=== PATIENT | female | born 1990 | race Two or more races ===

== ENCOUNTER 2019-09-18 18:39 | Emergency (ER) | payer OTHER ==
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
[2019-09-18 19:24] VITALS: BP 123/88; PULSE 66; TEMP 98.5; BMI 39.4
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
[2019-09-18] MEDS ORDERED: ACETAMINOPHEN 500 MG TABLET (FP) PO ONE (19:45)
[2019-09-18] MEDS ORDERED: ACETAMINOPHEN 325 MG TABLET (FP) ONE (19:47)
== END 2019-09-19 03:53 | disposition home or self-care (01) ==
LOC: JER 18:39
DX: O99.89 Other specified diseases and conditions complicating pregnancy, childbirth and the puerperium (principal); S00.03XA Contusion of scalp, initial encounter; M54.5 Low back pain; M54.2 Cervicalgia; T14.8XXA Other injury of unspecified body region, initial encounter; Y04.2XXA Assault by strike against or bumped into by another person, initial encounter; Y93.89 Activity, other specified; Y92.512 Supermarket, store or market as the place of occurrence of the external cause; Y99.8 Other external cause status; Y07.9 Unspecified perpetrator of maltreatment and neglect; Z3A.13 13 weeks gestation of pregnancy; F31.9 Bipolar disorder, unspecified; F43.10 Post-traumatic stress disorder, unspecified; G40.909 Epilepsy, unspecified, not intractable, without status epilepticus; Z91.013 Allergy to seafood; Z91.040 Latex allergy status; Z91.048 Other nonmedicinal substance allergy status; Z88.5 Allergy status to narcotic agent
CPT/HCPCS: 70450-TC; 72040-TC; 72125-TC; 99281-25

== ENCOUNTER 2019-11-03 14:33 | Inpatient (IN) | payer OTHER ==
[2019-11-03] MEDS ORDERED: SODIUM CHLORIDE 0.9% 500 ML INFUS.BAG IV ONE (14:58)
[2019-11-03 15:01] VITALS: TEMP 98.1; BMI 38.6
--- NOTE | 2019-11-03 15:28 | PDOC ---
Attending Attestation - Resident Resident Name: Cooper Meehan - ED Attending Attestation I have performed the following: I have examined & evaluated the patient, The case was reviewed & discussed with the resident, I agree w/resident's findings & plan, Exceptions are as noted - HPI HPI: 11/03/19 15:25 29y F hx ofseizures (self d/cd off meds), migraines presents with episode of witnessed seizure like activty - per boyfriend, pt was doing well this mornig, had a mild headache, sat down, put her hands on her head and had a seizure like episode. Pt may have had brief LOC. pt notes that she feels better but still has mild headache without associated nausea/vomiting, vision changes, fever/ chills, neck pain, cp, sob, palpitations, cough, leg edema. pt does note some foul smelling urine recently - exam GENERAL: The patient is awake, alert, and fully oriented, Nontoxic - in no acute distress. HEAD: Normocephalic, atraumatic. EYES: extraocular movements intact, sclera anicteric, conjunctiva clear. ENT: Normal voice, Moist mucous membranes. NECK: Normal range of motion, supple LUNGS: Breath sounds equal, clear to auscultation bilaterally. No wheezes, no rhonchi, no rales. HEART: Regular rate and rhythm, without murmur, rub or gallop. ABDOMEN: Soft, nontender, gravid abdomen, No guarding, no rebound.No CVA tenderness EXTREMITIES: Normal range of motion, no edema. No cyanosis. No erythema, or tenderness. NEUROLOGICAL: No facial assymetry, Normal speech, moving all 4 extremities spontaneously and symemtrically PSYCH: Normal mood, normal affect. SKIN: Warm, Dry, normal turgor, seizure vs pseodu pseixure. neuro consulted - recommends keppra load will ck labs to screen for metabolic derangement ua to screen for UTI neuro intact, will defer CT - Physicial Exam PE: 11/09/19 07:32 seee above - Medical Decision Making 11/03/19 18:41 labs reviewed UA noted for UTI will treat with abx will dc w fu with Neuro
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
[2019-11-03] MEDS ORDERED: levETIRAcetam 500 MG TABLET (FP) PO ONE ×2 (15:53→16:10)
[2019-11-03] MEDS ORDERED: ACETAMINOPHEN 325 MG TABLET (FP) PO ONE (16:03)
[2019-11-03] MEDS ORDERED: METOCLOPRAMIDE HCL INJECTION 10 MG/2 ML VIAL IVPUSH ONE (16:03)
[2019-11-03 16:08] LABS: BASO % 0.3 % (0-2.0); EOS % 6.5 % (0-4.5); HEMATOCRIT 33.5 % (32.4-45.2); LYMPH % 23.5 % (8-40); MCH 26.3 pg (25.7-33.7); MCHC 32.8 g/dl (32.0-36.0); MEAN CELL VOLUME 80.1 fl (80-96); MEAN PLT VOLUME 9.1 fl (7.5-11.1); MONO % 5.2 % (3.8-10.2); NEUT % 64.5 % (42.8-82.8); PLATELET COUNT 176 K/MM3 (134-434); RBC 4.18 M/mm3 (3.60-5.2); RDW 14.8 % (11.6-15.6); WHITE BLOOD COUNT 8.1 K/mm3 (4.0-10.0)
[2019-11-03] MEDS ORDERED: ACETAMINOPHEN 325 MG TABLET (FP) ONE (16:10)
[2019-11-03 16:31] LABS: EPI CELLS 1.7 /HPF (0-5/HPF); HYALINE CASTS 1 /lpf (0-8); INR 0.96 (0.83-1.09); PH,URINE 6.5 (5.0-8.0); PROTHROMBIN TIME (PATIENT) 11.3 SEC (9.7-13.0); URINE APPEARANCE CLEAR; URINE BACTERIA 8749.9 /hpf (NEGATIVE); URINE BILIRUBIN NEGATIVE (NEGATIVE); URINE COLOR YELLOW; URINE GLUCOSE (UA) NEGATIVE (NEGATIVE); URINE KETONE NEGATIVE (NEGATIVE); URINE LEUK ESTERASE NEGATIVE (NEGATIVE); URINE NITRITE POSITIVE (NEGATIVE); URINE PROTEIN NEGATIVE (NEGATIVE); URINE RBC 0 /hpf (0-4); URINE UROBILINOGEN 0.2 mg/dL (0.2-1.0); URINE WBC 4 /hpf (0-5)
[2019-11-03 17:02] LABS: ALBUMIN 2.6 g/dl (3.4-5.0); ALK PHOS 55 U/L (45-117); ANION GAP 7 MMOL/L (8-16); BILIRUBIN,TOTAL 0.2 mg/dL (0.2-1); BLOOD UREA NITROGEN 10.7 mg/dL (7-18); CALCIUM 8.4 mg/dL (8.5-10.1); CHLORIDE 108 mmol/L (98-107); CO2 23 mmol/L (21-32); CREATININE 0.6 mg/dL (0.55-1.3); GLUCOSE,RANDOM 76 mg/dL (74-106); POTASSIUM 3.9 mmol/L (3.5-5.1); SGOT/AST 10 U/L (15-37); SGPT/ALT 20 U/L (13-61); SODIUM 138 mmol/L (136-145); TOT PROT 5.7 g/dl (6.4-8.2)
--- NOTE | 2019-11-03 18:28 | CON.NEURO ---
Consult - Past Medical History Pulmonary: Yes: Asthma (no meds, inhler induces panic attacks) ...LMP: 03/31/14 Psych: Yes: Anxiety, Panic Musculoskeletal: Yes: Chronic low back pain - Past Surgical History Past Surgical History: Yes: Cholecystectomy - Alcohol/Substance Use Hx Alcohol Use: No History of Substance Use: reports: None - Smoking History Smoking history: Never smoked Have you smoked in the past 12 months: No Aproximately how many cigarettes per day: 3 - Social History Usual Living Arrangement: With Spouse ADL: Independent Home Medications - Allergies Allergies/Adverse Reactions: Allergies Allergy/AdvReac Type Severity Reaction Status Date / Time haloperidol [From Haldol] Allergy Severe syncope Verified 02/04/15 13:36 haloperidol lactate Allergy Severe syncope Verified 02/04/15 13:36 [From Haldol] Latex, Natural Rubber Allergy Mild Rash Verified 02/04/15 13:36 shellfish derived Allergy Verified 02/04/15 13:36 amphetamine aspartate AdvReac Verified 02/04/15 13:36 [From Adderall] amphetamine sulfate AdvReac Verified 02/04/15 13:36 [From Adderall] aripiprazole [From Abilify] AdvReac Verified 02/04/15 13:36 dextroamphetamine saccharate AdvReac Verified 02/04/15 13:36 [From Adderall] dextroamphetamine sulfate AdvReac Verified 02/04/15 13:36 [From Adderall] morhpine Allergy Severe syncope Uncoded 02/04/15 13:36 baby powder AdvReac Uncoded 02/04/15 13:36 - Home Medications Home Medications: Ambulatory Orders Acetaminophen [Tylenol .Regular Strength -] 650 mg PO Q3H PRN #20 tablet Ibuprofen [Motrin -] 200 mg PO Q4H PRN #20 tablet 03/14/15 Vitamins (Sjr) - 1 tab PO DAILY #30 tablet 03/14/15 Physical Exam-Neuro Vital Signs: Vital Signs Temperature 98.1 F 11/03/19 14:35 Pulse Rate 69 11/03/19 14:35 Respiratory Rate 16 11/03/19 14:35 Blood Pressure 112/82 11/03/19 14:35 O2 Sat by Pulse Oximetry (%) 100 11/03/19 14:35 Labs: CBC, BMP 11/03/19 15:42 11/03/19 15:42 INR, PTT INR 0.96 (0.83-1.09) 11/03/19 15:42 Assessment/Plan cc Breakthrough seizure HPI 29 YEAR OLD FEMALE 17 week , pateint has history of headhace and epilepsy and pseudoseizure. She was prescribed antiseizure medicaiton but she was non compliant . 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 She also have history of PTSD,Vertigo, depression. It is not clear if she has epileptic seizure or pseudo seizure. Patient has history of tbi in past. Recently she has been using marijuana , which seems to be helpful. Patient's finance describes it as patient holding her head with both hands, eyes rolled back and she started generalized shaking and lasted one minute. There is no loc, there is no post ictal confusion, tongue bite. she recently has ct head done in september 2019 and it was normal. PMH as above Allergies/Adverse Reactions: Allergies Allergy/AdvReac Type Severity Reaction Status Date / Time haloperidol [From Haldol] Allergy Severe syncope Verified 02/04/15 13:36 haloperidol lactate Allergy Severe syncope Verified 02/04/15 13:36 [From Haldol] Latex, Natural Rubber Allergy Mild Rash Verified 02/04/15 13:36 shellfish derived Allergy Verified 02/04/15 13:36 amphetamine aspartate AdvReac Verified 02/04/15 13:36 [From Adderall] amphetamine sulfate AdvReac Verified 02/04/15 13:36 [From Adderall] aripiprazole [From Abilify] AdvReac Verified 02/04/15 13:36 dextroamphetamine saccharate AdvReac Verified 02/04/15 13:36 [From Adderall] dextroamphetamine sulfate AdvReac Verified 02/04/15 13:36 [From Adderall] morhpine Allergy Severe syncope Uncoded 02/04/15 13:36 baby powder AdvReac Uncoded 02/04/15 13:36 Home Medications: Acetaminophen [Tylenol .Regular Strength -] 650 mg PO Q3H PRN #20 tablet Ibuprofen [Motrin -] 200 mg PO Q4H PRN #20 tablet 03/14/15 Vitamins (Sjr) - 1 tab PO DAILY #30 tablet 03/14/15 ROS,FH,SH reviewed in chart NEUROLOGICAL EXAMINATION Alert oriented x 3, speech is noraml, neck is supple vss eomi, pupils reactive no face asymmetry moving all ext sensation is normal ct head is normal in september 2019 Assessment/Plan 29 year old female 19 week , was supposed to be on AED ( Keppra ) but non compliant with medicaiton , she has breakthrough seizure, not clear if true epileptic seizure Plan: check electroylytes, urinary drug screen - no need for imaging keppra can be resumed 750 mg po bid -abstain from drugs, follow up with neurologist and obgyn -seizure precautions were discussed with patient Thanking you so much Candido Jean-Baptiste MD
[2019-11-03 19:22] VITALS: PULSE 82
--- NOTE | 2019-11-03 20:01 | PDOC ---
*Physical Exam - Vital Signs Last Vital Signs Temp Pulse Resp BP Pulse Ox 98.1 F 82 18 118/78 98 11/03/19 14:35 11/03/19 15:30 11/03/19 15:30 11/03/19 15:30 11/03/19 15:30 - Physical Exam 11/03/19 20:21 GENERAL: Awake, alert, and fully oriented, in no acute distress HEAD: No signs of trauma, normocephalic, atraumatic EYES: PERRLA, EOMI, sclera anicteric, conjunctiva clear ENT: Auricles normal inspection, hearing grossly normal, nares patent, oropharynx clear without exudates. Moist mucosa NECK: Normal ROM, supple, no lymphadenopathy, JVD, or masses LUNGS: No distress, speaks full sentences, clear to auscultation bilaterally HEART: Regular rate and rhythm, normal S1 and S2, no murmurs, rubs or gallops, peripheral pulses normal and equal bilaterally. ABDOMEN: gravid, nontender, uterus palpable above pubic symphysis. Soft, nontender, normoactive bowel sounds. No guarding, no rebound. No masses EXTREMITIES : Normal inspection, Normal range of motion, no edema. No clubbing or cyanosis NEUROLOGICAL: Cranial nerves II through XII grossly intact. Normal speech, normal gait, no focal sensorimotor deficits SKIN: Warm, Dry, normal turgor, no rashes or lesions noted ED Treatment Course - LABORATORY CBC & Chemistry Diagram: 11/03/19 15:42 11/03/19 15:42 - ADDITIONAL ORDERS Additional order review: Laboratory Results 11/03/19 11/03/19 11/03/19 15:42 15:42 15:42 PT with INR 11.30 INR 0.96 Sodium Potassium Chloride Carbon Dioxide Anion Gap BUN Creatinine Est GFR (CKD-EPI)AfAm Est GFR (CKD-EPI)NonAf Random Glucose Lactic Acid 0.5 Calcium Total Bilirubin AST ALT Alkaline Phosphatase Creatine Kinase Troponin I Total Protein Albumin Urine Color Yellow Urine Appearance Clear Urine pH 6.5 Ur Specific [place] 1.011 Urine Protein Negative Urine Glucose (UA) Negative Urine Ketones Negative Urine Blood Negative Urine Nitrite Positive H Urine Bilirubin Negative Urine Urobilinogen 0.2 Ur Leukocyte Esterase Negative Urine WBC (Auto) 4 Urine RBC (Auto) 0 Urine Casts (Auto) 1 U Epithel Cells (Auto) 1.7 Urine Bacteria (Auto) 8749.9 11/03/19 15:42 PT with INR INR Sodium 138 Potassium 3.9 Chloride 108 H Carbon Dioxide 23 Anion Gap 7 L BUN 10.7 Creatinine 0.6 Est GFR (CKD-EPI)AfAm 141.76 Est GFR (CKD-EPI)NonAf 122.31 Random Glucose 76 Lactic Acid Calcium 8.4 L Total Bilirubin 0.2 AST 10 L ALT 20 Alkaline Phosphatase 55 Creatine Kinase 31 Troponin I < 0.02 Total Protein 5.7 L Albumin 2.6 L Urine Color Urine Appearance Urine pH Ur Specific [place] Urine Protein Urine Glucose (UA) Urine Ketones Urine Blood Urine Nitrite Urine Bilirubin Urine Urobilinogen Ur Leukocyte Esterase Urine WBC (Auto) Urine RBC (Auto) Urine Casts (Auto) U Epithel Cells (Auto) Urine Bacteria (Auto) 11/03/19 15:42 RBC 4.18 MCV 80.1 MCHC 32.8 RDW 14.8 D MPV 9.1 Neutrophils % 64.5 Lymphocytes % 23.5 Monocytes % 5.2 Eosinophils % 6.5 H D Basophils % 0.3 - Medications Given in the ED: ED Medications Discontinued Medications Generic Name Dose Route Start Last Admin Trade Name Freq PRN Reason Stop Dose Admin Acetaminophen 650 mg 11/03/19 16:03 11/03/19 16:15 Tylenol - PO 11/03/19 16:04 650 mg ONCE ONE Administration Levetiracetam 750 mg 11/03/19 15:53 11/03/19 16:14 Keppra - PO 11/03/19 15:54 750 mg ONCE ONE Administration Metoclopramide HCl 10 mg 11/03/19 16:03 11/03/19 16:15 Reglan Injection - IVPUSH 11/03/19 16:04 10 mg ONCE ONE Administration Sodium Chloride 500 ml 11/03/19 14:58 11/03/19 15:45 Normal Saline - IV 11/03/19 14:59 500 ml ONCE ONE Administration Medical Decision Making - Medical Decision Making 11/03/19 20:00 29 yo at 18w3d GA with h/o PTSD, vertigo, depression, PTSD, homlesness, and epilepsy (non compliant with medication) who p/w with seizure like activity (1:30PM). Vitals wnl, AF, A&O4. Physical exam notable for gravid uterus palpable above pubic symphysis. No evidence closed head injury, or c-spine tenderness. ED Course notable or UA with evidence of infection treated with Keflex. Patient evaluated by Neurology who recommends continuing 750 Keppra BID. TVUS notable for viable IUP, FHR 160, 18w3d. Patient has received Reglan, Tylenol, NS Ed Course: Patient continually endorses fatigue. Possible 2/2 infection vs. postictal state. Patient also states that she has nowhere to live, and [facility] residential where she resides is closed. Spoke to Dr. Gill who agrees to consult patient on medicine service. Will provide folic acid 4 mg per Jig Bore Tool Maker. 11/03/19 20:50 Patient endorsed to medicine, Admit to medicine Ifudu. Discharge - Discharge Information Problems reviewed: Yes Clinical Impression/Diagnosis: Seizure Qualifiers: Weeks of gestation: 18 weeks Qualified Code(s): Z3A.18 - 18 weeks gestation of Condition: Stable - Admission No - Additional Discharge Information Prescriptions: Cephalexin Monohydrate [Keflex -] 500 mg PO BID #14 capsule MDD 2 tab levETIRAcetam [Keppra -] 750 mg PO ONCE #30 tablet MDD 3 tab - Follow up/Referral Referrals: Melisa Norwood MD [Primary Care Provider] - - Patient Discharge Instructions Patient Printed Discharge Instructions: DI for Seizure Disorder -- Adult - Post Discharge Activity
[2019-11-03 20:17] VITALS: BP 101/58
[2019-11-03] MEDS ORDERED: CEPHALEXIN MONOHYDRATE 500 MG CAPSULE (UD) PO ONE (20:18)
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
[2019-11-03] MEDS ORDERED: CEPHALEXIN MONOHYDRATE 500 MG CAPSULE (UD) ONE (20:34)
[2019-11-03] MEDS ORDERED: FOLIC ACID 1 MG TABLET (FP) PO ONE (20:47)
[2019-11-03] MEDS ORDERED: FOLIC ACID 1 MG TABLET (FP) ONE (21:23)
--- NOTE | 2019-11-03 23:21 | CON.OBG ---
Consult Consult Specialty:: industrial truck driver Referred by:: Berny Wesley ( resident) Reason for Consultation:: 19 weeks pregn , seizure - History of Present Illness Chief Complaint: 29 yrs G 11 P 3073 , LMP 06/23/19 EDC 03/30/20, 19 weeks by dates. US on 11/03/19 18.3 weeks,sliup, breech, af normal, mvp 5.2 cm, ant placenta EDC 04/03/20. presents in ER with seizure followedby headache, witnessed by boyfriend ,. No care History of Present Illness: pt states she had PCP at [facility] , Dr Bingham. when she found she was , she was referred for ,hence she did not go back to pcp for care . she has h/o seizures now for 2,5 years she stopped meds 9months ago she has been getting frequent seizures . last seizure was 3 days ago before today no c/o aura, c/o nausea , light bothersome , gets headache she did not have seizures during previous pregn PA OB HX : 3 no complications 2009 2013 [facility] ? wt 6'4" , 2015 [facility] ? wt 8lbs 5 sp ( 1st trimester) , no complications 2 Ind Ab ( 1st trimester) ,no complications h/o last pregnacy with IUD , sp ab in 2016 h/o iud ( ?mirena for 1 year after LD in 2015 - History Source History Provided By: Patient Limitations to Obtaining History: No Limitations - Past Medical History POLICY VALUE CALCULATOR: Yes: Seizure (2.5 yrs , no meds , ) Cardio/Vascular: No: HTN, Murmur Pulmonary: Yes: Asthma (no meds, inhler induces panic attacks) Hepatobiliary: Yes: Cholelithiasis (s/p lap choly in 2014 ) Renal/: Yes: UTI (presently , burning urination ) ...LMP: 06/23/19 ...: Yes (19 wks) ...: 11 ...Para: 3 (3 2009, 2013, 2015) Heme/Onc: Yes: Anemia Psych: Yes: Anxiety, Panic, Other (pt was on meds under care of psychitrist , presently no meds ) Musculoskeletal: Yes: Chronic low back pain Endocrine: Yes: Other (h/o prediabetes, no meds , no h/o GDM ) - Past Surgical History Past Surgical History: Yes: Cholecystectomy (2015 ) - Alcohol/Substance Use Hx Alcohol Use: No History of Substance Use: reports: Marijuana (states stopped 8 months ago ) - Smoking History Smoking history: Never smoked Have you smoked in the past 12 months: No Aproximately how many cigarettes per day: 3 - Social History Usual Living Arrangement: With Spouse ADL: Independent Home Medications - Allergies Allergies/Adverse Reactions: Allergies Allergy/AdvReac Type Severity Reaction Status Date / Time haloperidol [From Haldol] Allergy Severe syncope Verified 11/03/19 20:28 haloperidol lactate Allergy Severe syncope Verified 11/03/19 20:28 [From Haldol] Latex, Natural Rubber Allergy Mild Rash Verified 11/03/19 20:28 shellfish derived Allergy Verified 11/03/19 20:28 amphetamine aspartate AdvReac Verified 11/03/19 20:28 [From Adderall] amphetamine sulfate AdvReac Verified 11/03/19 20:28 [From Adderall] aripiprazole [From Abilify] AdvReac Verified 11/03/19 20:28 dextroamphetamine saccharate AdvReac Verified 11/03/19 20:28 [From Adderall] dextroamphetamine sulfate AdvReac Verified 11/03/19 20:28 [From Adderall] morhpine Allergy Severe syncope Uncoded 11/03/19 20:28 baby powder AdvReac Uncoded 11/03/19 20:28 - Home Medications Home Medications: Ambulatory Orders Cephalexin Monohydrate [Keflex -] 500 mg PO BID #14 capsule MDD 2 tab 11/03/19 levETIRAcetam [Keppra -] 750 mg PO ONCE #30 tablet MDD 3 tab 11/03/19 Physical Exam-BUSINESS BANKING REPRESENTATIVE Vital Signs: Vital Signs Temperature 98.1 F 11/03/19 20:17 Pulse Rate 82 11/03/19 20:17 Respiratory Rate 18 11/03/19 20:17 Blood Pressure 101/58 L 11/03/19 20:17 O2 Sat by Pulse Oximetry (%) 98 11/03/19 20:17 Constitutional: Yes: Well Nourished, Obese, Poor Hygeine Eyes: Yes: WNL HENT: Yes: WNL, Normocephalic Neck: Yes: WNL Cardiovascular: Yes: WNL, Regular Rate and Rhythm Respiratory: Yes: WNL, CTA Bilaterally Gastrointestinal: Yes: WNL, Normal Bowel Sounds ...Rectal Exam: Yes: Deferred Renal/: Yes: (18 weeks size uterus FPF fhs 155 bpm in the midline with doppler). No: CVA Tenderness - Left, CVA Tenderness - Right Pelvis: No: Tenderness External Genitalia: Yes: Normal Internal Exam Deferred: Yes Vaginal Exam: Yes: Normal. No: Bleeding Cervix: Yes: Normal, Other (cx close , posterior , firm, pp high) Uterus: Yes: Other ( ut 18 weeks) Adnexa: Not Palpable: Bilateral Breast(s): Yes: WNL, Other (bilateral retracted nipples) Musculoskeletal: Yes: WNL Extremities: Yes: WNL. No: Calf Tenderness Edema: No Integumentary: Yes: Tattoos Neurological: Yes: WNL, Alert, Oriented, Seizure, Other (respnds to questions well well oriented in time & space). No: Confusion ...Motor Strength: WNL Psychiatric: Yes: WNL, Alert, Oriented Labs: CBC, BMP 11/03/19 15:42 11/03/19 15:42 Laboratory Tests 11/03/19 11/03/19 11/03/19 15:42 15:42 15:42 PT with INR 11.30 INR 0.96 AST 10 L ALT 20 Urine Protein Negative Urine Nitrite Positive H Ur Leukocyte Esterase Negative Urine Bacteria (Auto) 8749.9 possible contaminated urine specimen with vaginal discharge Problem List - Problems (1) with 18 completed weeks gestation Code(s): Z3A.18 - 18 WEEKS GESTATION OF (2) Seizure Code(s): R56.9 - UNSPECIFIED CONVULSIONS (3) No care in current Code(s): O09.30 - SUPRVSN OF PREG W INSUFFICIENT ANTENAT CARE, UNSP TRIMESTER Qualifiers: Trimester: second trimester Qualified Code(s): O09.32 - Supervision of with insufficient care, second trimester Assessment/Plan 30 urs G11, P3073 , 18.3 weeks by today sono, , no care, seizure disorder, ?mental health anxiety , depression problems h/o seizure disorder , recurrent attacks , non compliant with meds Plan follow up recommendations as per neurologist ct po kepra 750 mg bid pnv po po folicc acid 4 mg daily urine culture urine for drug tox pt should be referred to [address] [place] [address] for care
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
--- NOTE | 2019-11-03 23:49 | DS ---
Physical Exam: SUBJECTIVE: Patient seen and examined at the bedside in the ED. Refer to admission H&P for further subjective exam. OBJECTIVE: Vital Signs Period Temp Pulse Resp BP Sys/Antunez Pulse Ox Last 24 Hr 98.1 F-98.1 F 69-82 16-18 101-118/58-82 98-100 PHYSICAL EXAM GENERAL: Awake, alert, and fully oriented, in no acute distress. HEAD: Normal with no signs of trauma. EYES: Pupils equal, round and reactive to light, extraocular movements intact, sclera anicteric, conjunctiva clear. EARS, NOSE, THROAT: Oropharynx clear without exudates. Dry mucous membranes. NECK: Normal range of motion, supple without lymphadenopathy, JVD. LUNGS: Breath sounds equal, clear to auscultation bilaterally. No wheezes, and no crackles. No accessory muscle use. HEART: Regular rate and rhythm, normal S1 and S2 without murmur, rub. ABDOMEN: Soft, obese, nontender, not distended, normoactive bowel sounds, no guarding, no rebound, no masses. MUSCULOSKELETAL: Normal range of motion at all joints. No bony deformities or tenderness. UPPER EXTREMITIES: 2+ pulses, warm, well-perfused. No cyanosis. No clubbing. No peripheral edema. LOWER EXTREMITIES: 2+ pulses, warm, well-perfused. No calf tenderness. No peripheral edema. NEUROLOGICAL: Cranial nerves II-XII intact. 5/5 muscle strength upper and lower extremities bilaterally. Sensation intact to gross touch throughout. 2/4 reflexes Achilles and patellar PSYCHIATRIC: Pressured and tangential speech. Anxious appearing. SKIN: Warm, dry, normal turgor, no rashes or lesions noted, normal capillary refill. LABS Laboratory Results - last 24 hr 11/03/19 11/03/19 11/03/19 15:30 15:42 15:42 WBC 8.1 RBC 4.18 Hgb 11.0 Hct 33.5 MCV 80.1 MCH 26.3 MCHC 32.8 RDW 14.8 D Plt Count 176 MPV 9.1 Absolute Neuts (auto) 5.2 Neutrophils % 64.5 Lymphocytes % 23.5 Monocytes % 5.2 Eosinophils % 6.5 H D Basophils % 0.3 Nucleated RBC % 0 PT with INR INR Sodium 138 Potassium 3.9 Chloride 108 H Carbon Dioxide 23 Anion Gap 7 L BUN 10.7 Creatinine 0.6 Est GFR (CKD-EPI)AfAm 141.76 Est GFR (CKD-EPI)NonAf 122.31 Random Glucose 76 Lactic Acid Calcium 8.4 L Magnesium 2.1 Total Bilirubin 0.2 AST 10 L ALT 20 Alkaline Phosphatase 55 Creatine Kinase 31 Troponin I < 0.02 Total Protein 5.7 L Albumin 2.6 L Urine Color Urine Appearance Urine pH Ur Specific [place] Urine Protein Urine Glucose (UA) Urine Ketones Urine Blood Urine Nitrite Urine Bilirubin Urine Urobilinogen Ur Leukocyte Esterase Urine WBC (Auto) Urine RBC (Auto) Urine Casts (Auto) U Epithel Cells (Auto) Urine Bacteria (Auto) 11/03/19 11/03/19 11/03/19 15:42 15:42 15:42 WBC RBC Hgb Hct MCV MCH MCHC RDW Plt Count MPV Absolute Neuts (auto) Neutrophils % Lymphocytes % Monocytes % Eosinophils % Basophils % Nucleated RBC % PT with INR 11.30 INR 0.96 Sodium Potassium Chloride Carbon Dioxide Anion Gap BUN Creatinine Est GFR (CKD-EPI)AfAm Est GFR (CKD-EPI)NonAf Random Glucose Lactic Acid 0.5 Calcium Magnesium Total Bilirubin AST ALT Alkaline Phosphatase Creatine Kinase Troponin I Total Protein Albumin Urine Color Yellow Urine Appearance Clear Urine pH 6.5 Ur Specific [place] 1.011 Urine Protein Negative Urine Glucose (UA) Negative Urine Ketones Negative Urine Blood Negative Urine Nitrite Positive H Urine Bilirubin Negative Urine Urobilinogen 0.2 Ur Leukocyte Esterase Negative Urine WBC (Auto) 4 Urine RBC (Auto) 0 Urine Casts (Auto) 1 U Epithel Cells (Auto) 1.7 Urine Bacteria (Auto) 8749.9 HOSPITAL COURSE: Bri Christian is a 29 year old female currently 18 weeks with a past medical history of seizures (s/p trauma, not currently taking medications ), PTSD, vertigo, depression admitted for seizures. home insurance agent resident was paged by emergency department. ED Resident Lup[place] informed this global technical writer that the patient had removed her IV and eloped from the hospital. Date of Admission:11/03/19 Date of Discharge: 11/03/19 Minutes to complete discharge: 30 Discharge Summary Problems reviewed: Yes Reason For Visit: /SEIZURE/WEAKNESS Current Active Problems (Acute) Seizure (Acute) Condition: Stable - Instructions Referrals: Melisa Norwood MD [Primary Care Provider] - - Home Medications Comprehensive Discharge Medication List: Ambulatory Orders Cephalexin Monohydrate [Keflex -] 500 mg PO BID #14 capsule MDD 2 tab 11/03/19 levETIRAcetam [Keppra -] 750 mg PO ONCE #30 tablet MDD 3 tab 11/03/19 Problem List - Problems (1) Code(s): Z34.90 - ENCNTR FOR SUPRVSN OF NORMAL , UNSP, UNSP TRIMESTER Qualifiers: Weeks of gestation: 18 weeks Qualified Code(s): Z3A.18 - 18 weeks gestation of (2) Seizure Code(s): R56.9 - UNSPECIFIED CONVULSIONS (3) Obesity Code(s): E66.9 - OBESITY, UNSPECIFIED This patient is new to me today: Yes Date on this admission: 11/03/19 Emergency Visit: Yes ED Registration Date: 11/03/19 Care time: The patient presented to the Emergency Department on the above date and was hospitalized for further evaluation of their emergent condition. Critical Care patient: No - Discharge Referral Referred to [facility] Med P.C.: No
[2019-11-04] MEDS ORDERED: ENOXAPARIN NA (PORCINE) 40 MG/0.4 ML DISP.SYRIN SQ SCH (10:00)
[2019-11-04] MEDS ORDERED: CEPHALEXIN MONOHYDRATE 500 MG CAPSULE (UD) PO SCH (10:00)
[2019-11-04] MEDS ORDERED: FOLIC ACID 1 MG TABLET (FP) PO SCH (10:00)
[2019-11-04] MEDS ORDERED: levETIRAcetam 250 MG TABLET PO SCH (10:00)
--- NOTE | 2019-11-04 10:45 | EKG ---
Test Reason : Blood Pressure : / mmHG Vent. Rate : 065 BPM Atrial Rate : 065 BPM P-R Int : 152 ms QRS Dur : 086 ms QT Int : 464 ms P-R-T Axes : -24 046 032 degrees QTc Int : 482 ms NORMAL SINUS RHYTHM PROLONGED QT ABNORMAL ECG WHEN COMPARED WITH ECG OF 12-MAR-2015 14:19, NONSPECIFIC T WAVE ABNORMALITY NOW EVIDENT IN ANTERIOR LEADS Confirmed by KALYAN LYLE, UMAIR ([id number]) on 11/04/2019 10:45:08 AM Referred By: Confirmed By:UMAIR BIGGS MD
== END 2019-11-03 22:15 | disposition left against medical advice (07) | DRG 566 ==
LOC: JER 14:33 → JERBED 19:49
PROVIDERS: ADMIT Internal Medicine; ATTEND Internal Medicine
DX: O99.352 Diseases of the nervous system complicating pregnancy, second trimester (principal); G40.802 Other epilepsy, not intractable, without status epilepticus; O99.342 Other mental disorders complicating pregnancy, second trimester; F43.10 Post-traumatic stress disorder, unspecified; M54.5 Low back pain; F41.0 Panic disorder [episodic paroxysmal anxiety]; O23.42 Unspecified infection of urinary tract in pregnancy, second trimester; E88.09 Other disorders of plasma-protein metabolism, not elsewhere classified; Z3A.18 18 weeks gestation of pregnancy; Z87.820 Personal history of traumatic brain injury; Z91.14 Patient's other noncompliance with medication regimen
CPT/HCPCS: 36415; 76801-TC; 80053; 81003; 82550; 83605; 83735; 84484; 85025; 85610; 87086; 87186; 93005; 93010; 99284-25